=== PATIENT | male | born 1965 | race Caucasian/White ===

== ENCOUNTER 2023-04-25 03:21 | Inpatient (IN) | payer MEDICAID ==
[~2023-04-25] VITALS: Ht 180.3 cm; Wt 91.0 kg
[2023-04-25] MEDS ORDERED: ONDANSETRON HCL 4 MG/2 ML VIAL IV ONE (07:30)
[2023-04-25] MEDS ORDERED: HYDROmorphone HCL 2 MG/ML VL/or syr IV ONE (07:30)
[2023-04-25] MEDS ORDERED: SODIUM CHLORIDE 0.9% 1,000 ML IV ONE ×2 (07:30)
[2023-04-25 08:16] LABS: Basophils # (auto) 0 10 ^3/uL (0-0.2); Basophils % (auto) 0.4 % (0.0-2.0); Eosinophils # (auto) 0.2 10 ^3/uL (0-0.8); Eosinophils % (auto) 1.6 % (0.0-7.0); Hematocrit 45.1 % (41.0-53.0); Hemoglobin 14.9 g/dL (13.5-17.5); Lymphocytes # (auto) 1.1 10 ^3/uL (0.4-5.4); Lymphocytes % (auto) 11.4 % (10.0-50.0); Mean Corpuscular Hemoglobin 31.3 pg (28.0-32.0); Monocytes # (auto) 0.9 10 ^3/uL (0-1.3); Monocytes % (auto) 9.3 % (0.0-12.0); Neutrophils # (auto) 7.5 10 ^3/uL (1.6-8.6); Neutrophils % (auto) 77.3 % (37.0-80.0); Red Blood Cells 4.75 10^6/uL (4.5-5.90); Red Cell Distribution Width 16.1 % (11.8-14.3); White Blood Cell 9.7 10^3/uL (4.4-10.8)
[2023-04-25 08:21] LABS: Urine Bacteria NONE SEEN /hpf (None Seen); Urine Blood Negative /uL (Negative); Urine Clarity Clear (Clear); Urine Color Yellow (Yellow); Urine Protein, UAD Negative (Negative); Urine Specific Gravity 1.015 (1.001-1.035); Urine Urobilinogen Normal (Negative); Urine WBC 7 /hpf (0 - 3)
[2023-04-25 08:33] LABS: INR 1.03 (0.9-1.15); Partial Thromboplastin Time 29.1 SEC (24.5-34.5); Prothrombin Time 10.8 sec (9.3-11.8)
[2023-04-25 08:45] LABS: Alanine Aminotransferase 32 U/L (7-40); Albumin 4.6 g/dL (3.2-4.8); Alkaline Phosphatase 72 U/L (46-116); Anion Gap 7 (5-15); Aspartate Aminotransferase 25 U/L (13-40); BUN/Creatinine Ratio 8.1 (10.0-20.0); Blood Urea Nitrogen 9 mg/dL (9-23); Calcium 9.8 mg/dL (8.5-10.1); Carbon Dioxide 23 mmol/L (20-30); Chloride 111 mmol/L (98-107); Glucose 115 mg/dL (74-106); Potassium 4.2 mmol/L (3.5-5.1); Sodium 141 mmol/L (136-145)
[2023-04-25 08:46] LABS: Bilirubin, Total 0.7 mg/dL (0.2-1.0); Total Protein 6.8 g/dL (5.7-8.2)
[2023-04-25] MEDS ORDERED: CEPH500C PO (09:14)
[2023-04-25] MEDS ORDERED: LOSA50TA46 PO (09:14)
[2023-04-25] MEDS ORDERED: LEVO500T91 PO (09:14)
[2023-04-25] MEDS ORDERED: AMLO1TAB23 PO (09:14)
[2023-04-25] MEDS ORDERED: IBUP1TAB5 PO (09:14)
[2023-04-25] MEDS ORDERED: ALBU108A5 PO (09:14)
[2023-04-25] MEDS: SODIUM CHLORIDE 0.9% 1,000 ML IV SCH ×2 (09:15→20:00)
[2023-04-25] MEDS ORDERED: ALBUTEROL SULF HFA 90MCG INH 200DOSE IN PRN (09:15)
[2023-04-25] MEDS ORDERED: HYDROmorphone HCL 2 MG/ML VL/or syr IM ONE (10:00)
[2023-04-25] MEDS ORDERED: ONDANSETRON HCL 4 MG/2 ML VIAL IM ONE (10:00)
[2023-04-25] MEDS: amLODIPine BESYLATE 5 MG TAB PO SCH (10:22)
[2023-04-25] MEDS: LOSARTAN POTASSIUM 50 MG TAB PO SCH (10:22)
[2023-04-25] MEDS: HYDROcodone-ACET 5/325MG TAB PO PRN (15:20)
[2023-04-25] MEDS ORDERED: MORPHINE SULFATE 4 MG/ML SYR/VIAL IV ONE (17:30)
[2023-04-25] MEDS ORDERED: MORPHINE SULFATE INJ 2 MG/ml SYRG IV PRN (17:30)
[2023-04-25] MEDS ORDERED: ONDANSETRON HCL 4 MG/2 ML VIAL IV PRN (17:30)
[2023-04-25 20:00] VITALS: PULSE 73; RESP 16; O2SAT 96
[2023-04-26] MEDS: HYDROcodone-ACET 5/325MG TAB PO PRN (02:57)
[2023-04-26 05:39] LABS: Basophils # (auto) 0 10 ^3/uL (0-0.2); Basophils % (auto) 0.3 % (0.0-2.0); Eosinophils # (auto) 0.3 10 ^3/uL (0-0.8); Eosinophils % (auto) 3.4 % (0.0-7.0); Hematocrit 42.6 % (41.0-53.0); Hemoglobin 14.2 g/dL (13.5-17.5); Lymphocytes # (auto) 0.9 10 ^3/uL (0.4-5.4); Lymphocytes % (auto) 9.9 % (10.0-50.0); Mean Corpuscular Hemoglobin 31.6 pg (28.0-32.0); Mean Corpuscular Hgb Conc. 33.3 g/dL (32.0-36.0); Monocytes # (auto) 1.1 10 ^3/uL (0-1.3); Monocytes % (auto) 12.1 % (0.0-12.0); Neutrophils # (auto) 6.8 10 ^3/uL (1.6-8.6); Neutrophils % (auto) 74.3 % (37.0-80.0); Red Blood Cells 4.48 10^6/uL (4.5-5.90); Red Cell Distribution Width 15.4 % (11.8-14.3); White Blood Cell 9.1 10^3/uL (4.4-10.8)
[2023-04-26 05:59] LABS: Alanine Aminotransferase 22 U/L (7-40); Albumin 4.2 g/dL (3.2-4.8); Alkaline Phosphatase 66 U/L (46-116); Anion Gap 7 (5-15); Aspartate Aminotransferase 16 U/L (13-40); BUN/Creatinine Ratio 9.1 (10.0-20.0); Bilirubin, Total 0.8 mg/dL (0.2-1.0); Blood Urea Nitrogen 8 mg/dL (9-23); Calcium 9.2 mg/dL (8.5-10.1); Carbon Dioxide 23 mmol/L (20-30); Chloride 111 mmol/L (98-107); Glucose 114 mg/dL (74-106); Potassium 3.9 mmol/L (3.5-5.1); Sodium 141 mmol/L (136-145); Total Protein 6.3 g/dL (5.7-8.2)
[2023-04-26] MEDS: SODIUM CHLORIDE 0.9% 1,000 ML IV SCH ×2 (06:23→17:20)
[2023-04-26 09:00] VITALS: BP_SYST 144; BP_SYST 174; BP_DIAS 82; BP_DIAS 88; PULSE 76; PULSE 77; RESP 20; TEMP 98.1; TEMP 98.2; O2SAT 97
[2023-04-26] MEDS: amLODIPine BESYLATE 5 MG TAB PO SCH (10:16)
[2023-04-26] MEDS: LOSARTAN POTASSIUM 50 MG TAB PO SCH (10:16)
[2023-04-26 10:17] VITALS: PULSE 76; RESP 20; O2SAT 97
[2023-04-26 13:00] VITALS: BP 144/88; PULSE 76; RESP 20; TEMP 98.1; O2SAT 97
[2023-04-26 17:00] VITALS: BP 155/75; PULSE 81; RESP 16; TEMP 98.3; O2SAT 94
[2023-04-26] MEDS: HYDROmorphone HCL 2 MG/ML VL/or syr IV PRN ×2 (17:19→21:46)
[2023-04-26 20:00] VITALS: PULSE 75; RESP 18; O2SAT 95
[2023-04-26 22:00] VITALS: BP 141/83; PULSE 75; RESP 18; TEMP 97.8; O2SAT 95
[2023-04-27] VITALS (8 sets, daily range): BP systolic 150–178; BP diastolic 75–98; PULSE 63–79; RESP 14–20; TEMP 97.5–98.8; O2SAT 93–99
[2023-04-27] MEDS: SODIUM CHLORIDE 0.9% 1,000 ML IV SCH ×3 (01:15→20:45)
[2023-04-27] MEDS: HYDROmorphone HCL 2 MG/ML VL/or syr IV PRN ×2 (04:18→06:43)
[2023-04-27] MEDS: hydrALAZINE HCL 20 MG/ML VL IV PRN ×2 (06:42→21:35)
[2023-04-27] MEDS: LOSARTAN POTASSIUM 50 MG TAB PO SCH (09:10)
[2023-04-27] MEDS: amLODIPine BESYLATE 5 MG TAB PO SCH (09:11)
[2023-04-27] MEDS ORDERED: TRANEXAMIC ACID 20 ML ONE (09:48)
[2023-04-27] MEDS ORDERED: VANCOMYCIN HCL 1000 MG VL ONE (09:48)
[2023-04-27] MEDS ORDERED: TETRACAINE 1% INJ 2 ML VIAL IJ ONE (10:03)
[2023-04-27] MEDS ORDERED: MORPHINE SULF PF 5 MG/10 ML VIAL ONE (10:09)
[2023-04-27] MEDS ORDERED: fentaNYL CITRATE 100 MCG/2 ML VL ONE (10:09)
[2023-04-27] MEDS ORDERED: MIDAZOLAM HCL 2MG/2ML 2ml VIAL (1mg/ml) ONE ×2 (10:09)
[2023-04-27] MEDS ORDERED: ceFAZolin 2 GM/D5W100ml 100 ML IV ONE (10:31)
[2023-04-27] MEDS ORDERED: DexAMETHasone SOD PHOS 10MG/1ML VIAL INJ ONE (11:48)
[2023-04-27] MEDS ORDERED: BUPIVACAINE HCL 50 ML ONE (12:46)
[2023-04-27] MEDS ORDERED: DexAMETHasone SOD PHOS 10MG/1ML VIAL INJ IV PRN (13:00)
[2023-04-27] MEDS ORDERED: HYDROmorphone HCL 2 MG/ML VL/or syr IV PRN (13:00)
[2023-04-27] MEDS ORDERED: ePHEDrine SULFATE 50 MG/ML AMP IV PRN (13:00)
[2023-04-27] MEDS ORDERED: BISACODYL 5 MG EC TAB PO PRN (13:00)
[2023-04-27] MEDS: LACTATED RINGER'S 1,000 ML IV SCH ×2 (13:00→20:52)
[2023-04-27] MEDS ORDERED: MIDAZOLAM HCL 2MG/2ML 2ml VIAL (1mg/ml) IV PRN (13:00)
[2023-04-27] MEDS ORDERED: LABETALOL HCL 5 MG/ML 4ML SYRINGE IV PRN (13:00)
[2023-04-27] MEDS ORDERED: NALOXONE HCL 0.4 MG/ML VIAL IV PRN (13:00)
[2023-04-27] MEDS ORDERED: ONDANSETRON HCL 4 MG/2 ML VIAL IV PRN (13:00)
[2023-04-27] MEDS: ACCU-CHEK COMFORT CURVE STRIP VI SCH ×2 (17:14→21:36)
[2023-04-27] MEDS: KETOROLAC TROMETH 30 MG/ML 1ML VIAL IV PRN (21:00)
[2023-04-27] MEDS: ENOXAPARIN SOD 30 MG/0.3 ML SYRINGE SC SCH (21:35)
[2023-04-27] MEDS: ACETAMINOPHEN 325 MG TAB PO PRN (21:36)
[2023-04-27] MEDS: DOCUSATE SOD 100 MG CAP PO SCH (21:36)
[2023-04-28] VITALS (7 sets, daily range): BP systolic 133–171; BP diastolic 59–100; PULSE 60–89; RESP 17–21; TEMP 97.5–98.3; O2SAT 94–98
[2023-04-28 05:42] LABS: Hematocrit 41.1 % (41.0-53.0); Hemoglobin 13.9 g/dL (13.5-17.5)
[2023-04-28] MEDS: ACCU-CHEK COMFORT CURVE STRIP VI SCH ×4 (06:16→22:10)
[2023-04-28] MEDS: SODIUM CHLORIDE 0.9% 1,000 ML IV SCH ×2 (06:16→17:15)
[2023-04-28] MEDS: LACTATED RINGER'S 1,000 ML IV SCH ×2 (08:43→19:00)
[2023-04-28] MEDS: amLODIPine BESYLATE 5 MG TAB PO SCH (08:49)
[2023-04-28] MEDS: LOSARTAN POTASSIUM 50 MG TAB PO SCH (08:49)
[2023-04-28] MEDS: ACETAMINOPHEN 325 MG TAB PO PRN (08:50)
[2023-04-28] MEDS: ENOXAPARIN SOD 30 MG/0.3 ML SYRINGE SC SCH ×2 (08:51→21:17)
[2023-04-28] MEDS: DOCUSATE SOD 100 MG CAP PO SCH ×2 (08:54→21:17)
[2023-04-28] MEDS: HYDROmorphone HCL 2 MG/ML VL/or syr IV PRN ×3 (14:35→20:24)
[2023-04-28] MEDS: KETOROLAC TROMETH 30 MG/ML 1ML VIAL IV PRN (22:21)
[2023-04-29] VITALS (8 sets, daily range): BP systolic 111–159; BP diastolic 61–81; PULSE 62–79; RESP 18–20; TEMP 97.5–98.2; O2SAT 93–97
[2023-04-29] MEDS: SODIUM CHLORIDE 0.9% 1,000 ML IV SCH ×3 (03:15→23:15)
[2023-04-29] MEDS: LACTATED RINGER'S 1,000 ML IV SCH ×2 (05:00→15:00)
[2023-04-29 05:34] LABS: Hematocrit 38.7 % (41.0-53.0)
[2023-04-29] MEDS: ACCU-CHEK COMFORT CURVE STRIP VI SCH ×3 (07:00→17:26)
[2023-04-29] MEDS: DOCUSATE SOD 100 MG CAP PO SCH ×3 (09:54→21:06)
[2023-04-29] MEDS: ENOXAPARIN SOD 30 MG/0.3 ML SYRINGE SC SCH ×2 (09:54→21:08)
[2023-04-29] MEDS: LOSARTAN POTASSIUM 50 MG TAB PO SCH (09:55)
[2023-04-29] MEDS: amLODIPine BESYLATE 5 MG TAB PO SCH (09:55)
[2023-04-29] MEDS: HYDROmorphone HCL 2 MG/ML VL/or syr IV PRN ×2 (09:56→17:42)
[2023-04-29] MEDS: KETOROLAC TROMETH 30 MG/ML 1ML VIAL IV PRN ×2 (13:17→20:12)
[2023-04-29] MEDS ORDERED: ALBUTEROL SULF 2.5 MG/0.5ML(0.5%) NEB SOLN NEB PRN (19:00)
[2023-04-29] MEDS ORDERED: IPRATROPIUM BROM 0.5 MG/2.5ML INH SOL NEB PRN (19:00)
[2023-04-30] VITALS (10 sets, daily range): BP systolic 78–136; BP diastolic 60–81; PULSE 59–85; RESP 18–20; TEMP 36.7; O2SAT 93–98
[2023-04-30] MEDS: DOCUSATE SOD 100 MG CAP PO SCH ×2 (07:15→22:00)
[2023-04-30] MEDS: SODIUM CHLORIDE 0.9% 1,000 ML IV SCH ×2 (09:15→18:38)
[2023-04-30] MEDS: LOSARTAN POTASSIUM 50 MG TAB PO SCH (10:34)
[2023-04-30] MEDS: ENOXAPARIN SOD 30 MG/0.3 ML SYRINGE SC SCH ×2 (10:35→22:26)
[2023-04-30] MEDS: amLODIPine BESYLATE 5 MG TAB PO SCH (10:35)
[2023-04-30 10:37] LABS: Hematocrit 41.2 % (41.0-53.0); Hemoglobin 13.7 g/dL (13.5-17.5)
[2023-04-30] MEDS: HYDROmorphone HCL 2 MG/ML VL/or syr IV PRN ×2 (10:45→17:58)
[2023-05-01 05:00] VITALS: BP 145/85; PULSE 68; RESP 19; TEMP 98.1; O2SAT 96
[2023-05-01] MEDS: SODIUM CHLORIDE 0.9% 1,000 ML IV SCH ×2 (05:15→15:15)
[2023-05-01 08:00] VITALS: PULSE 85; PULSE 92; RESP 8; O2SAT 98
[2023-05-01 09:00] VITALS: BP 139/91; PULSE 71; RESP 19; TEMP 98; O2SAT 96
[2023-05-01] MEDS: HYDROmorphone HCL 2 MG/ML VL/or syr IV PRN ×3 (09:48→15:42)
[2023-05-01] MEDS: ENOXAPARIN SOD 30 MG/0.3 ML SYRINGE SC SCH (09:48)
[2023-05-01] MEDS: DOCUSATE SOD 100 MG CAP PO SCH (09:49)
[2023-05-01] MEDS: LOSARTAN POTASSIUM 50 MG TAB PO SCH (09:49)
[2023-05-01] MEDS: amLODIPine BESYLATE 5 MG TAB PO SCH (09:49)
[2023-05-01 13:03] VITALS: BP 117/69; PULSE 73; RESP 19; TEMP 98.5; O2SAT 94
[2023-05-01 17:00] VITALS: BP 109/62; PULSE 73; RESP 18; TEMP 98; O2SAT 97
[2023-05-01] MEDS ORDERED: NAP500T PO (17:02)
== END 2023-05-01 19:00 | disposition home or self-care (01) | DRG 323 ==
LOC: ER 03:21 → OVERFLOW 09:12 → WEST WING 04-26 09:14 → TELE-WESTW 04-27 13:48
PROVIDERS: ADMIT Nurse Practitioner Family; ATTEND Internal Medicine
PROC: 0SRS0JA Replacement of Left Hip Joint, Femoral Surface with Synthetic Substitute, Uncemented, Open Approach (ICD-10-PCS; principal; 2023-04-27 11:27)
DX: S72.002A Fracture of unspecified part of neck of left femur, initial encounter for closed fracture (principal); F17.210 Nicotine dependence, cigarettes, uncomplicated; I10 Essential (primary) hypertension; J44.9 Chronic obstructive pulmonary disease, unspecified; W17.89XA Other fall from one level to another, initial encounter; Z80.52 Family history of malignant neoplasm of bladder; Z82.3 Family history of stroke; Z83.3 Family history of diabetes mellitus; Y93.89 Activity, other specified; Y92.89 Other specified places as the place of occurrence of the external cause; Y99.8 Other external cause status
CPT/HCPCS: 36415; 71045; 72170; 72192; 73501; 80053; 81001; 82962; 85014; 85018; 85025; 85610; 85730; 86850; 86900; 86901; 93306; 97110; 97116; 97163; 97530; 99291; G0378; J1100; J1885; J2250; J2405; J3490

== ENCOUNTER 2023-08-30 14:18 | Emergency (ER) | payer MEDICAID ==
[~2023-08-30] VITALS: Ht 172.7 cm; Wt 91.2 kg
[~2023-08-30 14:18] MED LIST: ALBU108A5 PO; AMLO1TAB23 PO; CEPH500C PO; IBUP1TAB5 PO; LEVO500T91 PO; LOSA-534 PO; NAP500T PO
[2023-08-30 14:39] VITALS: BP 133/63; PULSE 80; RESP 18; O2SAT 96
[2023-08-30] MEDS: CLINDAMYCIN HCL 150 MG CAP PO ONE (16:10)
[2023-08-30] MEDS: cefTRIAXone SOD 1,000 MG VL IM ONE (16:11)
[2023-08-30] MEDS ORDERED: AMOX500T3 PO (16:33)
[2023-08-30] MEDS ORDERED: CLIN1CAP70 PO (16:33)
== END 2023-08-30 16:49 | disposition home or self-care (01) ==
LOC: ER 14:18
DX: J34.0 Abscess, furuncle and carbuncle of nose (principal); I10 Essential (primary) hypertension; F17.210 Nicotine dependence, cigarettes, uncomplicated; Z98.890 Other specified postprocedural states; Z79.899 Other long term (current) drug therapy
CPT/HCPCS: 96372; 99283; J0696

== ENCOUNTER 2023-12-05 17:53 | Inpatient (IN) | payer MEDICAID ==
[~2023-12-05] VITALS: Ht 177.8 cm; Wt 83.7 kg
[~2023-12-05 17:53] MED LIST changes: +AMOX500T3 PO; +CLIN1CAP70 PO
[2023-12-05 20:00] VITALS: PULSE 86; RESP 16; O2SAT 99
[2023-12-05] MEDS: cefTRIAXone W LIDOCAINE 1 GM IM IM ONE (21:08)
[2023-12-05 21:51] LABS: Basophils # (auto) 0.1 10 ^3/uL (0-0.2); Basophils % (auto) 0.7 % (0.0-2.0); Eosinophils # (auto) 0.4 10 ^3/uL (0-0.8); Eosinophils % (auto) 3.4 % (0.0-7.0); Hematocrit 44.8 % (41.0-53.0); Hemoglobin 15.2 g/dL (13.5-17.5); Lymphocytes # (auto) 2.6 10 ^3/uL (0.4-5.4); Mean Corpuscular Hemoglobin 31.3 pg (28.0-32.0); Mean Corpuscular Hgb Conc. 33.9 g/dL (32.0-36.0); Mean Corpuscular Volume 92.5 fL (80.0-100.0); Monocytes # (auto) 1.3 10 ^3/uL (0-1.3); Monocytes % (auto) 10.5 % (0.0-12.0); Neutrophils # (auto) 7.6 10 ^3/uL (1.6-8.6); Neutrophils % (auto) 63.4 % (37.0-80.0); Platelet Count (auto) 360 10^3/uL (140-450); Red Blood Cells 4.84 10^6/uL (4.5-5.90); Red Cell Distribution Width 14.1 % (11.8-14.3); White Blood Cell 11.9 10^3/uL (4.4-10.8)
[2023-12-05 22:12] LABS: Alanine Aminotransferase 20 U/L (7-40); Alkaline Phosphatase 111 U/L (46-116); Anion Gap 5 (5-15); BUN/Creatinine Ratio 11.2 (10.0-20.0); Blood Urea Nitrogen 17 mg/dL (9-23); Calcium 10.2 mg/dL (8.7-10.4); Carbon Dioxide 28 mmol/L (20-30); Chloride 110 mmol/L (98-107); Glucose 99 mg/dL (74-106); Sodium 143 mmol/L (136-145)
[2023-12-05 22:13] LABS: Albumin 4.7 g/dL (3.2-4.8); Aspartate Aminotransferase < 8 U/L (13-40); Bilirubin, Total 0.2 mg/dL (0.2-1.0)
[2023-12-05] MEDS ORDERED: ACETAMINOPHEN 325 MG TAB PO PRN (23:00)
[2023-12-06] VITALS (9 sets, daily range): BP systolic 149–161; BP diastolic 80–93; PULSE 65–70; RESP 17–18; TEMP 97.5–98.5; O2SAT 96–99
[2023-12-06] MEDS ORDERED: BUPR75TA98 PO (02:54)
[2023-12-06] MEDS ORDERED: HYDR-3682 PO (02:54)
[2023-12-06] MEDS ORDERED: ASPITAB34 OR (02:54)
[2023-12-06 06:02] LABS: Basophils # (auto) 0 10 ^3/uL (0-0.2); Basophils % (auto) 0.5 % (0.0-2.0); Eosinophils # (auto) 0.4 10 ^3/uL (0-0.8); Eosinophils % (auto) 4.1 % (0.0-7.0); Hematocrit 42.4 % (41.0-53.0); Hemoglobin 14.4 g/dL (13.5-17.5); Lymphocytes # (auto) 2.5 10 ^3/uL (0.4-5.4); Lymphocytes % (auto) 26.9 % (10.0-50.0); Mean Corpuscular Hemoglobin 31.4 pg (28.0-32.0); Mean Corpuscular Hgb Conc. 33.9 g/dL (32.0-36.0); Mean Corpuscular Volume 92.5 fL (80.0-100.0); Monocytes # (auto) 0.9 10 ^3/uL (0-1.3); Monocytes % (auto) 10.4 % (0.0-12.0); Neutrophils # (auto) 5.3 10 ^3/uL (1.6-8.6); Neutrophils % (auto) 58.1 % (37.0-80.0); Platelet Count (auto) 294 10^3/uL (140-450); Red Blood Cells 4.59 10^6/uL (4.5-5.90); Red Cell Distribution Width 13.8 % (11.8-14.3); White Blood Cell 9.1 10^3/uL (4.4-10.8)
[2023-12-06 06:11] LABS: Anion Gap 8 (5-15); Carbon Dioxide 24 mmol/L (20-30); Chloride 111 mmol/L (98-107); Potassium 3.5 mmol/L (3.5-5.1); Sodium 143 mmol/L (136-145)
[2023-12-06 06:13] LABS: Calcium 9.5 mg/dL (8.7-10.4)
[2023-12-06 06:17] LABS: Blood Urea Nitrogen 15 mg/dL (9-23); Glucose 80 mg/dL (74-106)
[2023-12-06] MEDS ORDERED: IOHEXOL 300 MG/ML 100ML BOTTLE IJ ONE (09:47)
[2023-12-06] MEDS: HYDROcodone-ACET 5/325MG TAB PO PRN (16:48)
[2023-12-06] MEDS: amLODIPine BESYLATE 5 MG TAB PO ONE (18:26)
[2023-12-07] VITALS (8 sets, daily range): BP systolic 119–153; BP diastolic 72–92; PULSE 56–70; RESP 15–20; TEMP 97.4–98.4; O2SAT 95–100
[2023-12-07 04:49] LABS: Urine Bacteria MANY /hpf (None Seen); Urine Blood 1+ /uL (Negative); Urine Clarity Turbid (Clear); Urine Color Yellow (Yellow); Urine Protein, UAD 1+ (Negative); Urine Specific Gravity 1.026 (1.001-1.035); Urine Urobilinogen Normal (Negative); Urine WBC 119 /hpf (0 - 3)
[2023-12-07 06:04] LABS: INR 0.98 (0.9-1.15); Prothrombin Time 10.4 sec (9.3-11.8)
[2023-12-07] MEDS: amLODIPine BESYLATE 5 MG TAB PO SCH (09:53)
[2023-12-07] MEDS: buPROPion HCL 75 MG TAB PO SCH (09:53)
[2023-12-07] MEDS: LOSARTAN POTASSIUM 50 MG TAB PO SCH (09:54)
[2023-12-07] MEDS: SODIUM CHLORIDE 0.9% 1,000 ML IV SCH (12:00)
[2023-12-07] MEDS: FOLIC ACID 1 MG, MULTIPLE VITAMIN 10 ML, MAGNESIUM SULF SDV 50% 8 MEQ, THIAMINE INJ 100... INJ SCH (12:09)
[2023-12-07] MEDS: MORPHINE SULFATE INJ 2 MG/ml SYRG IV ONE (12:25)
[2023-12-07] MEDS: chlordiazePOXIDE HCL 25 MG CAP PO SCH (12:25)
[2023-12-07 12:38] LABS: Amphetamine Screen, Urine Neg (NEGATIVE); Barbiturate Scree,Urine Neg (NEGATIVE); Benzodiazephine Screen, Urine Neg (NEGATIVE); Cannabinoid Screen, Urine Neg (NEGATIVE); Cocaine Screen, Urine Neg (NEGATIVE); Opiate Scree,Urine Neg (NEGATIVE); Phencyclidine Screen, Urine Neg (NEGATIVE)
[2023-12-07] MEDS ORDERED: CIPROFLOXACIN 400MG/200ML 200 ML IV ONE (14:40)
[2023-12-07 15:31] LABS: Chloride 111 mmol/L (98-107); Potassium 3.9 mmol/L (3.5-5.1); Sodium 142 mmol/L (136-145)
[2023-12-07 15:32] LABS: Anion Gap 11 (5-15); Calcium 9.7 mg/dL (8.7-10.4); Carbon Dioxide 20 mmol/L (20-30)
[2023-12-07] MEDS ORDERED: fentaNYL CITRATE 100 MCG/2 ML VL ONE ×2 (15:33→16:04)
[2023-12-07] MEDS ORDERED: PROPOFOL 10 MG/ML 20 ML IV ONE (15:33)
[2023-12-07] MEDS ORDERED: MIDAZOLAM HCL 2MG/2ML 2ml VIAL (1mg/ml) ONE (15:33)
[2023-12-07] MEDS ORDERED: LIDOCAINE 2% (LOCAL ANESTH.) PF 5ml SDV ONE (15:33)
[2023-12-07] MEDS ORDERED: ONDANSETRON HCL 4 MG/2 ML VIAL ONE (15:33)
[2023-12-07 15:37] LABS: BUN/Creatinine Ratio 14.3 (10.0-20.0); Blood Urea Nitrogen 16 mg/dL (9-23); Glucose 111 mg/dL (74-106)
[2023-12-07] MEDS ORDERED: BUPIVACAINE 0.5% P/F INJ 10 ML VIAL ONE (16:04)
[2023-12-07] MEDS ORDERED: LIDOCAINE 1% (LOCAL ANESTH.) PF 5ml SDV ONE (16:04)
[2023-12-07] MEDS ORDERED: BACITRACIN TOP OINT 1 UD PKG TOP ONE (16:24)
[2023-12-07] MEDS ORDERED: ONDANSETRON HCL 4 MG/2 ML VIAL IV ONE (16:45)
[2023-12-07] MEDS ORDERED: MORPHINE SULFATE 4 MG/ML SYR/VIAL IV PRN ×2 (16:45)
[2023-12-07] MEDS: NICOTINE 14 MG/24HR TOPICAL PATCH TD ONE (17:15)
[2023-12-08] VITALS (7 sets, daily range): BP systolic 130–147; BP diastolic 70–87; PULSE 61–70; RESP 16–20; TEMP 97.6–98.1; O2SAT 96–97
[2023-12-08] MEDS: NICOTINE 14 MG/24HR TOPICAL PATCH TD SCH (10:00)
[2023-12-08 11:39] LABS: Amphetamine Screen, Urine Neg (NEGATIVE)
[2023-12-08 11:40] LABS: Barbiturate Scree,Urine Neg (NEGATIVE); Benzodiazephine Screen, Urine Pos (NEGATIVE); Cannabinoid Screen, Urine Neg (NEGATIVE); Cocaine Screen, Urine Neg (NEGATIVE); Opiate Scree,Urine Neg (NEGATIVE); Phencyclidine Screen, Urine Neg (NEGATIVE)
[2023-12-08] MEDS: chlordiazePOXIDE HCL 25 MG CAP PO SCH (18:00)
[2023-12-09] VITALS (8 sets, daily range): BP systolic 120–153; BP diastolic 66–89; PULSE 52–63; RESP 16–21; TEMP 97.3–98.4; O2SAT 96–98
[2023-12-09] MEDS: THIAMINE HCL 100 MG TAB PO ONE (17:21)
[2023-12-09] MEDS: FOLIC ACID 1 MG TAB PO ONE (17:21)
[2023-12-09] MEDS: MULTIPLE VITAMINS W/ MINERALS TAB PO ONE (17:21)
[2023-12-09] MEDS: MAGNESIUM OXIDE 400 MG TAB PO ONE (17:21)
[2023-12-09] MEDS: chlordiazePOXIDE HCL 25 MG CAP PO SCH (17:32)
[2023-12-10 01:00] VITALS: BP 148/59; PULSE 65; RESP 17; TEMP 98.2; O2SAT 98
[2023-12-10 05:00] VITALS: BP 137/63; PULSE 61; RESP 19; TEMP 98.3; O2SAT 97
[2023-12-10 07:44] VITALS: BP 129/74; PULSE 65; RESP 20; TEMP 98.4; O2SAT 97
[2023-12-10 08:00] VITALS: PULSE 58; PULSE 61; RESP 18; O2SAT 93
[2023-12-10] MEDS ORDERED: LINE1TAB6 PO (08:46)
[2023-12-10] MEDS: MAGNESIUM OXIDE 400 MG TAB PO SCH (08:58)
[2023-12-10] MEDS: FOLIC ACID 1 MG TAB PO SCH (08:58)
[2023-12-10] MEDS: THIAMINE HCL 100 MG TAB PO SCH (08:58)
[2023-12-10] MEDS: MULTIPLE VITAMINS W/ MINERALS TAB PO SCH (08:59)
[2023-12-10 09:52] VITALS: BP 129/74; PULSE 65; RESP 20; TEMP 98.4; O2SAT 97
[2023-12-10 12:26] VITALS: BP 171/86; PULSE 63; RESP 18; TEMP 98.3; O2SAT 97
[2023-12-10] MEDS ORDERED: SUCCINYLCHOLINE CHLORIDE 20 MG/ML 10ML VIAL IV ONE (12:49)
[2023-12-11] MEDS ORDERED: chlordiazePOXIDE HCL 25 MG CAP PO SCH (07:00)
[2023-12-14 12:46] LABS: Chlamydia Trachomatis, NAA Negative (Negative); Neisseria gonorrhoeae, NAA Negative (Negative)
== END 2023-12-10 12:50 | disposition home or self-care (01) | DRG 446 ==
LOC: ER 17:53 → OVERFLOW 23:12 → EAST 12-06 02:30 → TELE-EAST 12-08 00:20
PROVIDERS: ADMIT Nurse Practitioner; ATTEND Family Medicine
PROC: 0TC Urinary System, Extirpation (ICD-10-PCS; principal; 2023-12-07 15:29)
DX: T19.0XXA Foreign body in urethra, initial encounter (principal); N17.9 Acute kidney failure, unspecified; I20.1 Angina pectoris with documented spasm; F32.A Depression, unspecified; F41.9 Anxiety disorder, unspecified; I45.10 Unspecified right bundle-branch block; F10.10 Alcohol abuse, uncomplicated; N28.1 Cyst of kidney, acquired; I10 Essential (primary) hypertension; Y90.9 Presence of alcohol in blood, level not specified; I20.89 Other forms of angina pectoris; F14.10 Cocaine abuse, uncomplicated; N39.0 Urinary tract infection, site not specified; W44.8XXA Other foreign body entering into or through a natural orifice, initial encounter; B95.2 Enterococcus as the cause of diseases classified elsewhere; Z86.73 Personal history of transient ischemic attack (TIA), and cerebral infarction without residual deficits; Z80.52 Family history of malignant neoplasm of bladder; Z82.3 Family history of stroke; Z83.3 Family history of diabetes mellitus; Z85.51 Personal history of malignant neoplasm of bladder; Y93.89 Activity, other specified; Y92.89 Other specified places as the place of occurrence of the external cause; Y99.8 Other external cause status
CPT/HCPCS: 36415; 71045; 74178; 80048; 80053; 80061; 80307; 81001; 82962; 83036; 83735; 83880; 84443; 84484; 85025; 85610; 85730; 87086; 87088; 87186; 93005; 93306; 96372; G0378; J0330; J0696; J2001; J2250; J2405; J2704; J3490